=== PATIENT | male | born 1955 | race Caucasian/White ===

== ENCOUNTER 2020-01-08 10:44 | Emergency (ER) | payer OTHER, MEDICARE ==
[2020-01-08 11:34] LABS: ABSOLUTE LYMPHOCYTES (AUTO) 0.7 10^3/uL (0.5-4.7); ABSOLUTE MONOCYTES (AUTO) 0.3 10^3/uL (0.1-1.4); BASOPHILS % (AUTO) 0.6 % (0-2); EOSINOPHILS % (AUTO) 0.5 % (0-6); HEMATOCRIT 42.6 % (37.9-51.0); HEMOGLOBIN 14.6 g/dL (13.5-17.0); LYMPHOCYTES % (AUTO) 10.4 % (13-45); MEAN CORPUSCULAR HEMOGLOBIN 33.9 pg (27.0-33.4); MEAN CORPUSCULAR HGB CONC 34.3 g/dL (32.0-36.0); MEAN CORPUSCULAR VOLUME 99 fl (80-97); MONOCYTES % (AUTO) 4.5 % (3-13); PLATELET COUNT 150 10^3/uL (150-450); RED BLOOD COUNT 4.32 10^6/uL (4.35-5.55); RED CELL DISTRIBUTION WIDTH 12.8 % (11.5-14.0); TOTAL CELLS COUNTED % (AUTO) 100 %; WHITE BLOOD COUNT 7.1 10^3/uL (4.0-10.5)
[2020-01-08] MEDS ORDERED: NORMAL SALINE 1000 ML 1,000 ML IV ONE ×2 (11:43→13:49)
[2020-01-08 11:50] LABS: ALBUMIN 4.7 g/dL (3.5-5.0); ALCOHOL < 10 mg/dL (NONE DETECTED); ALKALINE PHOSPHATASE 46 U/L (38-126); ANION GAP 9 (5-19); ASPARTATE AMINO TRANSFERASE 42 U/L (17-59); BILIRUBIN,DIRECT 0.3 mg/dL (0.0-0.4); BILIRUBIN,TOTAL 0.6 mg/dL (0.2-1.3); BLOOD UREA NITROGEN 20 mg/dL (7-20); CALCIUM 9.5 mg/dL (8.4-10.2); CARBON DIOXIDE 22 mmol/L (22-30); CHLORIDE 105 mmol/L (98-107); GLUCOSE 199 mg/dL (75-110); POTASSIUM 5.5 mmol/L (3.6-5.0)
[2020-01-08 12:06] LABS: APPEARANCE,URINE CLEAR; BILIRUBIN,URINE NEGATIVE (NEGATIVE); COLOR,URINE YELLOW; GLUCOSE, URINE 150 mg/dL (NEGATIVE); KETONES,URINE NEGATIVE (NEGATIVE); LEUKOCYTE ESTERASE,URINE NEGATIVE (NEGATIVE); NITRITE,URINE NEGATIVE (NEGATIVE); PROTEIN,URINE NEGATIVE (NEGATIVE); URINE SPECIFIC GRAVITY 1.018; UROBILINOGEN,URINE NEGATIVE mg/dL (<2.0)
--- NOTE | 2020-01-08 12:12 | ER Document Report ---
Entered by TYRON SPEARS SCRIBE 01/08/20 1140 Acting as scribe for:BISHOP MARQUEZ MD ED General - General Chief Complaint: possible syncope Stated Complaint: SYNCOPE Time Seen by Provider: 01/08/20 11:26 Mode of Arrival: Medic Information source: Patient, Relative Notes: This 64 year old male patient presents to the emergency department today with complaints of a possible seizure. reports that she heard a loud nose, went to investigate and found the patient rolled over onto the floor with his coffee spilled and the reclining chair that he was sitting on resting on top of him. mentions that that he was very hot, sweaty, and had "frothy" sputum around his mouth and was confused when she got to him. She mentions that he would open his eyes to his name but would quickly doze back off. He has a history of liver cancer and drinks daily. mentions that after EMS was called he went into the bathroom and had a messy bowel movement all over the floor. He is currently on septra for a kidney infection per . - Related Data Allergies/Adverse Reactions: tetracycline [From Achromycin] Allergy (Verified 01/08/20 11:11) Past Medical History - General Information source: Patient - Social History Smoking Status: Never Smoker Cigarette use (# per day): No Frequency of alcohol use: Heavy - daily Drug Abuse: None Lives with: Family Family History: Reviewed & Not Pertinent - Past Medical History Cardiac Medical History: Reports: Hx Hypertension Malignancy Medical History: Reports Hx Liver Cancer Infectious Medical History: Reports: Hx Hepatitis Past Surgical History: Reports: Other - Operation as a child to abdomen, unsure what. Review of Systems - Review of Systems Constitutional: No symptoms reported EENT: No symptoms reported Cardiovascular: No symptoms reported Respiratory: No symptoms reported Gastrointestinal: See HPI Genitourinary: No symptoms reported Male Genitourinary: No symptoms reported Musculoskeletal: No symptoms reported Skin: No symptoms reported Hematologic/Lymphatic: No symptoms reported Neurological/Psychological: See HPI, Seizure -: Yes All other systems reviewed and negative Physical Exam - Vital signs Vitals: Temp Resp BP Pulse Ox 97.7 F 11 L 138/66 H 96 01/08/20 10:47 01/08/20 10:47 01/08/20 10:47 01/08/20 10:47 - Notes Notes: Physical Exam: General: Alert, appears well. HEENT: Normocephalic. Atraumatic. PERRL. Extraocular movements intact. Oropharynx clear. Dry mucous membranes. No tongue chewing. Neck: Supple. Non-tender. Respiratory: No respiratory distress. Rhonchi which clears with cough. Cardiovascular: Regular rate and rhythm. Abdominal: Normal Inspection. Non-tender. No distension. Normal Bowel Sounds. Back: No gross abnormalities. Extremities: Moves all four extremities. Upper extremities: Normal inspection. Normal ROM. Lower extremities: Normal inspection. No edema. Normal ROM. Neurological: Normal cognition. AAOx4. Normal speech. Psychological: Normal affect. Normal Mood. Skin: Warm. Dry. Normal color.8 Course - Re-evaluation Re-evalutation: 01/08/20 13:55 Patient's potassium level was 5.5, BUN was 20. He did have that large amount of diarrhea at home prior to coming to the hospital. He states that for the last several months he drinks a large glass of orange juice every morning. There is no other identifiable high potassium source in his diet. He is being treated with IV normal saline at this time to try to dilute his potassium and hydrate him. Kayexalate is not a good idea given the amount of diarrhea he had prior to coming to the hospital. 01/08/20 15:48 At discharge, the patient asked me to look at a tender hard spot on his right scrotum. He states it had been painful and draining foul colored and smelling substance for several days. On exam he appears to have an infected cyst on the right proximal posterior lateral scrotum. PROCEDURE: The right scrotal mass area was prepped with Shur-Clens. The area was anesthetized with 3 mL of 1% lidocaine local. The area was incised with a #11 blade. There was an abscess cavity encountered, but there was no drainage or purulence noted. A culture swab was placed into the cavity and sent to the lab. The carreon of the cavity have the appearance of an epidermal inclusion cyst and are quite firm and there is no loose necrotic debris found. The wound was irrigated with 5 mL normal saline. About a 5 cm wick using quarter inch iodoform gauze was used to pack the abscess cavity. Patient was given 4 x 4's to put pressure on the wound area to stop the bleeding. The patient has been on twice daily Septra for the past month and is supposed to stay on it for the near future. I will add Keflex for the next few days until the patient can see the primary care provider to evaluate for the seizures, and the scrotal sebaceous cyst infection. The patient has been here for over 5 hours and had not had any diarrhea. This makes C. difficile an unlikely cause of his one episode of diarrhea that he had after his seizure this morning. - Vital Signs Vital signs: Temp Pulse Resp BP Pulse Ox 97.7 F 12 138/66 H 96 01/08/20 10:47 01/08/20 11:00 01/08/20 10:47 01/08/20 11:00 - Laboratory Result Diagrams: 01/08/20 10:55 01/08/20 10:55 Laboratory results interpreted by me: 01/08/20 01/08/20 01/08/20 10:55 10:55 10:55 RBC 4.32 L MCV 99 H MCH 33.9 H Lymph % (Auto) 10.4 L Seg Neutrophils % 84.0 H Sodium 135.9 L Potassium 5.5 H Glucose 199 H Hemoglobin A1c % 4.5 L Urine Glucose (UA) Urine Ascorbic Acid 01/08/20 11:42 RBC MCV MCH Lymph % (Auto) Seg Neutrophils % Sodium Potassium Glucose Hemoglobin A1c % Urine Glucose (UA) 150 H Urine Ascorbic Acid 40 H - Diagnostic Test Radiology reviewed: Image reviewed, Reports reviewed - Chest x-ray does not show acute cardiopulmonary process. CT scan of the head is unremarkable. - EKG Interpretation by Me EKG shows normal: Sinus rhythm, Bird In Hand, Intervals, QRS Complexes, ST-T Waves Rate: Normal - 58 Rhythm: NSR When compared to previous EKG there are: Previous EKG unavailable Discharge - Discharge Clinical Impression: Seizure, Hyperkalemia, Scrotal sebaceous cyst Condition: Stable Disposition: HOME, SELF-CARE Additional Instructions: Seizure: You have had a seizure. Seizure disorders (epilepsy) of one sort or another affect about one out of 50 people. The seizure occurs because of abnormal electrical activity in the brain. Seizures may be due to drugs and alcohol, strokes, brain injury, or infection. In the most common form of epilepsy, no cause can be found. You will require further evaluation to determine the cause of your seizure, and to determine whether anti-seizure medication is required. This follow-up testing is important, so please call us if you encounter problems with scheduling of tests or appointments. YOU SHOULD NOT DRIVE until released to do so by your physician. The law requires that seizures be reported to the helper/driver's license bureau--a seizure while driving could be catastrophic. Call the doctor if seizures recur, or if you develop new symptoms such as fever, severe headache, stiff neck, confusion or increasing sleepiness, weakness or numbness, or visual problems. There was no clear explanation found for this seizure you suffered today. Your potassium levels were little high and you were a little dehydrated. Be sure and drink plenty of fluids throughout the day and evening for the next several days. Avoid orange juice and any other foods or fluids that are high in potassium. Take Imodium-AD for diarrhea if it continues to be a problem. Get plenty of rest. Avoid alcohol and illicit drugs. Do not drive until you have seen your doctor and been further evaluated for this seizure episode. Add the cephalexin antibiotic as prescribed. You may soak in a warm tub for comfort. You may remove the gauze packing in 2 to 3 days. You should try to keep the wound open using a Q-tip dipped in peroxide several times a day. Follow-up with your primary care provider Saturday to further evaluate this new seizure and to see if your scrotal cyst needs referral to a urologist for removal. RETURN TO THE EMERGENCY ROOM IF ANY NEW OR WORSENING SYMPTOMS. Prescriptions: Cephalexin Monohydrate [Keflex 500 mg Capsule] 500 mg PO QID #28 capsule I personally performed the services described in the documentation, reviewed and edited the documentation which was dictated to the scribe in my presence, and it accurately records my words and actions.
--- NOTE | 2020-01-08 12:20 | RADIOLOGY REPORT (SQ) ---
EXAM DESCRIPTION: CHEST SINGLE VIEW IMAGES COMPLETED DATE/TIME: 01/08/2020 12:11 pm REASON FOR STUDY: Seizure COMPARISON: None. EXAM PARAMETERS: NUMBER OF VIEWS: One view. TECHNIQUE: Single frontal radiographic view of the chest acquired. RADIATION DOSE: NA LIMITATIONS: None. FINDINGS: LUNGS AND PLEURA: No opacities, masses or pneumothorax. No pleural effusion. MEDIASTINUM AND HILAR STRUCTURES: No masses. Contour normal. HEART AND VASCULAR STRUCTURES: Heart normal in size. Normal vasculature. BONES: No acute findings. HARDWARE: None in the chest. OTHER: No other significant finding. IMPRESSION: NO ACUTE RADIOGRAPHIC FINDING IN THE CHEST. TECHNICAL DOCUMENTATION: JOB ID: [id number] 2010 [employer]- All Rights Reserved Reading location - IP/workstation name: [id number]
[2020-01-08 12:24] LABS: URINE AMPHETAMINES SCREEN NEGATIVE; URINE BARBITURATES SCREEN NEGATIVE; URINE BENZODIAZEPINES SCREEN NEGATIVE; URINE COCAINE SCREEN NEGATIVE; URINE METHADONE SCREEN NEGATIVE; URINE PHENCYCLIDINE SCREEN NEGATIVE
[2020-01-08 12:26] LABS: URINE MARIJUANA (THC) SCREEN UNCONFIRMED POSITIVE
--- NOTE | 2020-01-08 12:39 | RADIOLOGY REPORT (SQ) ---
EXAM DESCRIPTION: CT HEAD WITHOUT IMAGES COMPLETED DATE/TIME: 01/08/2020 12:13 pm REASON FOR STUDY: New onset seizure COMPARISON: None. TECHNIQUE: Axial images acquired through the brain without intravenous contrast. Images reviewed wi th bone, brain and subdural windows. Additional sagittal and coronal reconstructions were generated. Images stored on PACS. All CT scanners at this facility use dose modulation, iterative reconstruction, and/or weight based d osing when appropriate to reduce radiation dose to as low as reasonably achievable (ALARA). [facility]: Dose Right [facility]: CareDose [facility]: Dose Right [facility]: Teradose 4D [facility]: [employer] RADIATION DOSE: CT Rad equipment meets quality standard of care and radiation dose reduction techniq ues were employed. CTDIvol: 53.2 mGy. DLP: 1017 mGy-cm. mGy. LIMITATIONS: None. FINDINGS: VENTRICLES: Normal size and contour. CEREBRUM: No masses. No hemorrhage. No midline shift. No evidence for acute infarction. Normal gra y/white matter differentiation. No areas of low density in the white matter. CEREBELLUM: No masses. No hemorrhage. No alteration of density. No evidence for acute infarction. EXTRAAXIAL SPACES: No fluid collections. 1 cm hyperostosis internal table right parietal calvarium. ORBITS AND GLOBE: No intra- or extraconal masses. Normal contour of globe without masses. CALVARIUM: No fracture. PARANASAL SINUSES: No fluid or mucosal thickening. SOFT TISSUES: No mass or hematoma. OTHER: No other significant finding. IMPRESSION: NORMAL BRAIN CT WITHOUT CONTRAST. EVIDENCE OF ACUTE STROKE: NO. COMMENT: Quality ID # [id number]: Final reports with documentation of one or more dose reduction techniques (e.g., Automated exposure control, adjustment of the mA and/or kV according to patient size, use of iterative reconstruction technique) TECHNICAL DOCUMENTATION: JOB ID: [id number] 2010 [employer]- All Rights Reserved Reading location - IP/workstation name: [id number]
--- NOTE | 2020-01-08 13:43 | EKG REPORT ---
SEVERITY:- NORMAL ECG - SINUS RHYTHM : Confirmed by: Tico Mcleod MD 08-Jan-2020 13:42:34
[2020-01-08] MEDS ORDERED: LIDOCAINE 1% INJ-PF (10 MG/ML) 30 ML SDV INJ ONE (15:02)
[2020-01-08] MEDS ORDERED: CEPHALEXIN 500 MG CAPSULE PO ONE (15:55)
[2020-01-08 16:36] VITALS: BP 143/63
== END 2020-01-08 16:38 | disposition home or self-care (01) ==
LOC: ER 10:44
DX: R56.9 Unspecified convulsions (principal); L72.3 Sebaceous cyst; E87.5 Hyperkalemia; R55 Syncope and collapse; I10 Essential (primary) hypertension
CPT/HCPCS: 93005; 99285; 96360; 96361; 36415; 87070; 80307 ×2; 83735; 85025; 87075; 87077; 80053; 81001; 83036; 71045; 70450; 93010; 10060; J7030; 87205